=== PATIENT | male | born 1960 | race Caucasian/White ===

== ENCOUNTER 2019-06-07 11:07 | Emergency (ER) | payer SELFPAY ==
--- NOTE | 2019-06-07 12:14 | RAD ---
Chest 2 views HISTORY: Dyspnea. FINDINGS: No comparison. Cardiac silhouette and pulmonary vasculature are unremarkable. Mediastinum i s midline. No confluent airspace consolidation, pneumothorax, or pleural fluid. Old right rib fractures. Internal fixation of the right humeral head partially visualized. Degenerative changes thr oughout the thoracic spine. IMPRESSION: No active cardiopulmonary abnormalities are demonstrated.
[2019-06-07 12:26] LABS: #Eosinphils 0.3 thou/uL (0.0-0.7); #Lymphocytes 1.3 thou/uL (1.20-3.40); #Monocytes 0.6 thou/uL (0.11-0.59); #Neutrophils 2.4 thou/uL (1.40-6.50); %Basophils 0.7 % (0.0-1.0); %Eosinophils 5.7 % (0.0-10.0); %Lymphocytes 27.5 % (21.0-51.0); %Monocytes 14.1 % (0.0-10.0); Hemoglobin 15.3 g/dL (14.0-18.0); Mean Corpuscular HGB CONC 34.4 g/dL (32.0-36.0); Mean Corpuscular Hemoglobin 30.5 pg (27.0-31.0); Mean Corpuscular Volume 88.6 fL (78.0-98.0); Mean Platelet Volume 7.4 fL (7.4-10.4); Platelet Count 126 thou/uL (130-400); RBC Distribution Width 11.7 % (11.5-14.5); Red Blood Cell (RBC) Count 5.03 mill/uL (4.70-6.10); White Blood Cell (WBC) Count 4.6 thou/uL (4.8-10.8)
[2019-06-07] MEDS ORDERED: Azithromycin 250 MG TAB ONE (12:32)
[2019-06-07] MEDS ORDERED: Lidocaine 1% PF 5 ML VIAL ONE (12:32)
[2019-06-07] MEDS ORDERED: cefTRIAXone\\ROCEPHIN 1 GM VIAL ONE (12:32)
[2019-06-07 12:40] LABS: Anion Gap 11 mmol/L (10-20); BUN (Urea Nitrogen) 18 mg/dL (8.4-25.7); Calc. Creatinine Clearance 0 mL/min (70-130); Carbon Dioxide 25 mmol/L (22-29); Chloride 105 mmol/L (98-107); Estimated GFR-MDRD 67; Glucose 100 mg/dL (70-105); Sodium 137 mmol/L (136-145)
== END 2019-06-07 13:03 | disposition home or self-care (01) ==
LOC: ERS 11:07
DX: R05 Cough (principal); F43.10 Post-traumatic stress disorder, unspecified; J45.909 Unspecified asthma, uncomplicated
CPT/HCPCS: 36415; 71046; 80048; 85025; 93005; 94640; 96372; J0696; J2001; J7620